=== PATIENT | male | born 1975 | race Caucasian/White ===

== ENCOUNTER → 2023-11-18 | Outpatient (CLI) | payer BC ==
--- NOTE | 2023-11-18 16:32 | US ---
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 TECHNIQUE: FINDINGS: Scanned left medial ankle at patient's palpable area. Migkwypdp-[id number] hypoechoic area seen at area of concern measuring 5.4 x 5.9 x 1.6 cm. IMPRESSION: Nonspecific cutaneous mass. Tissue diagnosis recommended to exclude malignancy.
== END | disposition home or self-care (01) ==
LOC: RADUSWWP 16:04
PROVIDERS: ATTEND Family Medicine
DX: D48.5 Neoplasm of uncertain behavior of skin (principal)